=== PATIENT | male | born 1960 | race Caucasian/White ===

== ENCOUNTER 2016-04-20 19:54 | Inpatient (IN) | payer BC, OTHER ==
[2016-04-20] MEDS ORDERED: SODIUM CHLORIDE 0.9% 500 ML IV STA (20:28)
[2016-04-20] MEDS ORDERED: LEVOFLOXACIN 750MG-D5W PMX 750 MG in DEXTROSE/WATER 1 150ML.BAG IVPB STA (20:28)
[2016-04-20] MEDS ORDERED: methylPREDNISolone SOD SUCCI 125 MG/2 ML VIAL IV STA (20:28)
[2016-04-20] MEDS ORDERED: IPRATROPIUM-ALBUTEROL 3 ML NEB INHALATION STA (20:28)
[2016-04-20] MEDS ORDERED: SODIUM CHLORIDE 0.9% 1,000 ML IV STA (20:28)
[2016-04-20 20:53] LABS: Basophils % (A) 0 %; CH 30.1; CHCM 34.3; Eosinophils % (A) 0 %; HCT 39.4 % (39.0-53.0); HDW 2.47; HGB 13.5 gm/dL (13.0-17.5); Luc # (Auto) 0.24; Luc % (Auto) 3; Lymphocytes # (A) 0.4 k/uL (1.0-4.8); Lymphocytes % (A) 6 %; MCH 30.2 pg (25.0-35.0); MCHC 34.2 g/dL (31.0-37.0); MCV 88.1 fL (80.0-100.0); Mean Platelet Volume 8.1; Monocytes # (A) 0.6 k/uL (0-1.0); Monocytes % (A) 8 %; Neutrophils % (A) 82 %; RBC 4.47 m/uL (4.30-5.90); RDW 14.5 % (11.5-15.5); WBC 7.3 k/uL (3.8-10.6); WBC (Perox) 7.28
[2016-04-20 21:01] LABS: ALT 34 U/L (21-72); AST 61 U/L (17-59); Alkaline Phosphatase 54 U/L (38-126); Anion Gap 12 mmol/L; Blood Urea Nitrogen 17 mg/dL (9-20); Calcium 8.7 mg/dL (8.4-10.2); Carbon Dioxide 23 mmol/L (22-30); Chloride 97 mmol/L (98-107); Glucose 98 mg/dL (74-99); INR 1.5 (<1.1); Non-African American GFR(MDRD) >60 (>60 ml/min/1.73 sqM); Partial Thromboplastin Time 35.8 sec (22.0-30.0); Potassium 3.9 mmol/L (3.5-5.1); Prothrombin Time 14.9 sec (9.0-12.0); Sodium 132 mmol/L (137-145); Total Bilirubin 2.1 mg/dL (0.2-1.3); Total Protein 7.5 g/dL (6.3-8.2)
[2016-04-20] MEDS ORDERED: ACETAMINOPHEN TAB 500 MG TAB PO STA (21:05)
[2016-04-20] MEDS ORDERED: IBUPROFEN 600 MG TAB PO STA ×2 (21:10→21:11)
--- NOTE | 2016-04-20 21:13 | ED ---
SOB HPI - General Source: patient Mode of arrival: ambulatory Limitations: no limitations <Reece Coates - Last Filed: 04/20/16 21:11> <Ed Prasad - Last Filed: 04/20/16 22:47> - General Chief Complaint: Shortness of Breath Stated Complaint: SOB Time Seen by Provider: 04/20/16 19:59 - History of Present Illness Initial Comments: This 55-year-old white male presents with some shortness of breath as well as fever. He apparently was at urgent care prior to arrival and had an 83% pulse ox upon arrival. He's had a cough without production. He's also had wheezing. His symptoms came on approximately 2 days ago. He does note some sinus congestion and drainage for the last 2 weeks. He denies any history of DVT or PE. He denies any leg pain or swelling. He has had some diarrhea as well as a sore throat. The urgent care given a breathing treatment and also some Tylenol prior to arrival. He does present hypoxic and feverish. No other complaints or modifying factors. He denies any history of COPD asthma or emphysema. He does have a cardiac history. (Reece Coates) - Related Data Home Medications Medication Instructions Recorded Confirmed Aspirin EC [Ecotrin Low Dose] 81 mg PO QAM 06/15/15 04/20/16 Clopidogrel [Plavix] 75 mg PO QAM 06/15/15 04/20/16 Diltiazem HCl [Diltiazem 24Hr ER] 300 mg PO QAM 06/15/15 04/20/16 Famotidine 20 mg PO HS 06/15/15 04/20/16 Furosemide [Lasix] 20 mg PO DAILY 06/15/15 04/20/16 Levothyroxine Sodium [Synthroid] 25 mcg PO QAM 06/15/15 04/20/16 Losartan Potassium 100 mg PO HS 06/15/15 04/20/16 Nitroglycerin Sl Tabs [Nitrostat] 0.4 mg SUBLINGUAL Q5M PRN 06/15/15 04/20/16 Rivaroxaban [Xarelto] 20 mg PO DAILY@1200 06/15/15 04/20/16 Rosuvastatin [Crestor] 15 mg PO HS 06/15/15 04/20/16 Isosorbide Mononitrate ER [Imdur] 30 mg PO DAILY 04/20/16 04/20/16 Metoprolol Tartrate [Lopressor] 100 mg PO TID 04/20/16 04/20/16 Allergies Allergy/AdvReac Type Severity Reaction Status Date / Time No Known Allergies Allergy Verified 04/20/16 20:11 Review of Systems ROS Other: All systems not noted in ROS Statement are negative. <Reece Coates - Last Filed: 04/20/16 21:11> ROS Other: All systems not noted in ROS Statement are negative. <Ed Prasad - Last Filed: 04/20/16 22:47> ROS Statement: Those systems with pertinent positive or pertinent negative responses have been documented in the HPI. Past Medical History Past Medical History: Atrial Fibrillation, Coronary Artery Disease (CAD), COPD, Hyperlipidemia, Hypertension, Thyroid Disorder History of Any Multi-Drug Resistant Organisms: None Reported Past Surgical History: Coronary Bypass/CABG, Orthopedic Surgery Additional Past Surgical History / Comment(s): Right knee; CABG 2013; pyl[facility]al [facility] the Past Anesthesia/Blood Transfusion Reactions: No Reported Reaction Past Psychological History: No Psychological Hx Reported, Anxiety Additional Psychological History / Comment(s): anxious sometimes Smoking Status: Former smoker Past Alcohol Use History: Occasional Past Drug Use History: None Reported - Past Family History Father Family Medical History: Congestive Heart Failure (CHF), Diabetes Mellitus, Hypertension Mother Family Medical History: AFIB, Diabetes Mellitus <Reece Coates - Last Filed: 04/20/16 21:11> General Exam Limitations: no limitations <Reece Coates - Last Filed: 04/20/16 21:11> <Ed Prasad - Last Filed: 04/20/16 22:47> - General Exam Comments Initial Comments: GENERAL: The patient is well nourished and well hydrated. VITAL SIGNS: Heart rate, blood pressure, respiratory rate reviewed as recorded in nurse's notes. EYES: Pupils are round and reactive. Extraocular movements are intact. No conjunctival / lid redness or swelling. ENT: There is minimal posterior oropharyngeal erythema. Airway is patent. NECK: Nontender. No swelling or evidence of injury. No subcutaneous emphysema. Trachea is midline. No thyroid mass. HEART: Regular rate and rhythm. Good peripheral pulses. LUNGS/CHEST: There is wheezing noted bilaterally. No ecchymosis, subcutaneous emphysema, or tenderness. ABDOMEN: Abdomen soft without tenderness. No palpable masses or organomegaly. No peritoneal signs. No abdominal wall swelling or ecchymosis. EXTREMITIES: No extremity tenderness. Normal muscle tone and function. No thoracolumbar tenderness. NEUROLOGIC: Sensation is grossly intact. Cranial nerve exam reveals face is symmetrical, tongue is midline, speech is clear. SKIN: No abrasions or ecchymosis is noted. No induration or masses noted. PSYCHIATRIC: Alert and oriented. Appropriate behavior and judgment. (Reece Coates) Medical Decision Making - Lab Data Result diagrams: 04/20/16 20:35 04/20/16 20:35 <Reece Caotes - Last Filed: 04/20/16 21:11> - Lab Data Result diagrams: 04/20/16 20:35 04/20/16 20:35 <Ed Prasad - Last Filed: 04/20/16 22:47> - Medical Decision Making The patient was seen and examined. An IV is started and he receives some intravenous fluids as well as Levaquin. He also received some Motrin for his fever. A DuoNeb breathing treatment is ordered. Further care will be passed off to Dr. Prasad at approximately 9:15 PM. (Reece Coates) EKG shows atrial fibrillation with a rapid ventricular response at 122 bpm QRS 104 Q-T is 366 QTC is 521. Patient's EKG shows no ST segment elevation or depression even though it is a poor quality I see nothing suspicious. (Ed Prasad) - Lab Data Lab Results 04/20/16 04/20/16 04/20/16 Range/Units 20:35 20:35 20:35 WBC 7.3 (3.8-10.6) k/uL RBC 4.47 (4.30-5.90) m/uL Hgb 13.5 (13.0-17.5) gm/dL Hct 39.4 (39.0-53.0) % MCV 88.1 (80.0-100.0) fL MCH 30.2 (25.0-35.0) pg MCHC 34.2 (31.0-37.0) g/dL RDW 14.5 (11.5-15.5) % Plt Count 115 L (150-450) k/uL Neutrophils % 82 % Lymphocytes % 6 % Monocytes % 8 % Eosinophils % 0 % Basophils % 0 % Neutrophils # 6.0 (1.3-7.7) k/uL Lymphocytes # 0.4 L (1.0-4.8) k/uL Monocytes # 0.6 (0-1.0) k/uL Eosinophils # 0.0 (0-0.7) k/uL Basophils # 0.0 (0-0.2) k/uL PT (9.0-12.0) sec INR (<1.1) APTT (22.0-30.0) sec Sodium 132 L (137-145) mmol/L Potassium 3.9 (3.5-5.1) mmol/L Chloride 97 L (98-107) mmol/L Carbon Dioxide 23 (22-30) mmol/L Anion Gap 12 mmol/L BUN 17 (9-20) mg/dL Creatinine 1.05 (0.66-1.25) mg/dL Est GFR (MDRD) Af Amer >60 (>60 ml/min/1.73 sqM) Est GFR (MDRD) Non-Af >60 (>60 ml/min/1.73 sqM) Glucose 98 (74-99) mg/dL Plasma Lactic Acid Seven (0.7-2.0) mmol/L Calcium 8.7 (8.4-10.2) mg/dL Total Bilirubin 2.1 H (0.2-1.3) mg/dL AST 61 H (17-59) U/L ALT 34 (21-72) U/L Alkaline Phosphatase 54 (38-126) U/L Total Creatine Kinase 1363 H (55-170) U/L CK-MB (CK-2) 3.1 H* (0.0-2.4) ng/mL CK-MB (CK-2) Rel Index 0.2 Troponin I 0.018 (0.000-0.034) ng/mL NT-Pro-B Natriuret Pep pg/mL Total Protein 7.5 (6.3-8.2) g/dL Albumin 4.0 (3.5-5.0) g/dL Influenza Type A RNA (Not Detectd) Influenza Type B (PCR) (Not Detectd) 04/20/16 04/20/1617 Range/Units 20:35 20:35 20:35 WBC (3.8-10.6) k/uL RBC (4.30-5.90) m/uL Hgb (13.0-17.5) gm/dL Hct (39.0-53.0) % MCV (80.0-100.0) fL MCH (25.0-35.0) pg MCHC (31.0-37.0) g/dL RDW (11.5-15.5) % Plt Count (150-450) k/uL Neutrophils % % Lymphocytes % % Monocytes % % Eosinophils % % Basophils % % Neutrophils # (1.3-7.7) k/uL Lymphocytes # (1.0-4.8) k/uL Monocytes # (0-1.0) k/uL Eosinophils # (0-0.7) k/uL Basophils # (0-0.2) k/uL PT 14.9 H (9.0-12.0) sec INR 1.5 (<1.1) APTT 35.8 H (22.0-30.0) sec Sodium (137-145) mmol/L Potassium (3.5-5.1) mmol/L Chloride (98-107) mmol/L Carbon Dioxide (22-30) mmol/L Anion Gap mmol/L BUN (9-20) mg/dL Creatinine (0.66-1.25) mg/dL Est GFR (MDRD) Af Amer (>60 ml/min/1.73 sqM) Est GFR (MDRD) Non-Af (>60 ml/min/1.73 sqM) Glucose (74-99) mg/dL Plasma Lactic Acid Seven 1.0 (0.7-2.0) mmol/L Calcium (8.4-10.2) mg/dL Total Bilirubin (0.2-1.3) mg/dL AST (17-59) U/L ALT (21-72) U/L Alkaline Phosphatase (38-126) U/L Total Creatine Kinase (55-170) U/L CK-MB (CK-2) (0.0-2.4) ng/mL CK-MB (CK-2) Rel Index Troponin I (0.000-0.034) ng/mL NT-Pro-B Natriuret Pep 1580 pg/mL Total Protein (6.3-8.2) g/dL Albumin (3.5-5.0) g/dL Influenza Type A RNA (Not Detectd) Influenza Type B (PCR) (Not Detectd) 04/20/16 Range/Units 21:25 WBC (3.8-10.6) k/uL RBC (4.30-5.90) m/uL Hgb (13.0-17.5) gm/dL Hct (39.0-53.0) % MCV (80.0-100.0) fL MCH (25.0-35.0) pg MCHC (31.0-37.0) g/dL RDW (11.5-15.5) % Plt Count (150-450) k/uL Neutrophils % % Lymphocytes % % Monocytes % % Eosinophils % % Basophils % % Neutrophils # (1.3-7.7) k/uL Lymphocytes # (1.0-4.8) k/uL Monocytes # (0-1.0) k/uL Eosinophils # (0-0.7) k/uL Basophils # (0-0.2) k/uL PT (9.0-12.0) sec INR (<1.1) APTT (22.0-30.0) sec Sodium (137-145) mmol/L Potassium (3.5-5.1) mmol/L Chloride (98-107) mmol/L Carbon Dioxide (22-30) mmol/L Anion Gap mmol/L BUN (9-20) mg/dL Creatinine (0.66-1.25) mg/dL Est GFR (MDRD) Af Amer (>60 ml/min/1.73 sqM) Est GFR (MDRD) Non-Af (>60 ml/min/1.73 sqM) Glucose (74-99) mg/dL Plasma Lactic Acid Seven (0.7-2.0) mmol/L Calcium (8.4-10.2) mg/dL Total Bilirubin (0.2-1.3) mg/dL AST (17-59) U/L ALT (21-72) U/L Alkaline Phosphatase (38-126) U/L Total Creatine Kinase (55-170) U/L CK-MB (CK-2) (0.0-2.4) ng/mL CK-MB (CK-2) Rel Index Troponin I (0.000-0.034) ng/mL NT-Pro-B Natriuret Pep pg/mL Total Protein (6.3-8.2) g/dL Albumin (3.5-5.0) g/dL Influenza Type A RNA Detected A (Not Detectd) Influenza Type B (PCR) Not Detected (Not Detectd) Disposition <Reece Coates - Last Filed: 04/20/16 21:11> Time of Disposition: 22:24 <Ed Prasad - Last Filed: 04/20/16 22:47> Clinical Impression: Acute pulmonary edema, Influenza A Disposition: ADMITTED IP TO THIS HOSP
[2016-04-20 21:24] LABS: Troponin I 0.018 ng/mL (0.000-0.034)
--- NOTE | 2016-04-20 21:24 | XR ---
EXAMINATION TYPE: XR chest 2V DATE OF EXAM: 04/20/2016 9:08 PM COMPARISON: 06/16/2015 HISTORY: Short of breath TECHNIQUE: Frontal and lateral views of the chest are obtained. FINDINGS: Heart is enlarged. There is prominent vascular congestion. There are sternal wires. There are chest leads. There is slight blunting of costophrenic angles. IMPRESSION: There is evidence of congestive heart failure that is worse than last exam. Cardiomegaly .
[2016-04-20 21:28] LABS: Creatine Kinase MB 3.1 ng/mL (0.0-2.4)
[2016-04-20] MEDS ORDERED: OSELTAMIVIR 75 MG CAP PO STA (22:21)
[2016-04-20] MEDS ORDERED: FUROSEMIDE 10 MG/ML 2 ML VIAL IV ONE (22:25)
[2016-04-20] MEDS ORDERED: ACETAMINOPHEN TAB 325 MG TAB PO PRN (22:28)
[2016-04-20 23:35] VITALS: BMI 43.0
[2016-04-21] MEDS: METOPROLOL TARTRATE 50 MG TAB PO SCH ×3 (00:01→20:19)
[2016-04-21 00:17] LABS: Appearance,Urine Clear (Clear); Bilirubin,Urine Negative (Negative); Glucose,Urine (UA) Negative (Negative); Ketones,Urine Negative (Negative); Leukocyte Esterase,Urine Negative (Negative); Mucus,Urine Rare /hpf; Nitrite,Urine Negative (Negative); PH, Urine 5.5 (5.0-8.0); Particle Count 670; Protein,Urine Trace (Negative); RBC,Urine 2 /hpf (0-5); Specific Gravity,Urine 1.008 (1.001-1.035); Squamous Epithelial Cell,Urine <1 /hpf (0-4); UA Billing (MACRO vs. MICRO) MICRO; Urobilinogen,Urine <2.0 mg/dL (<2.0); WBC,Urine <1 /hpf (0-5)
[2016-04-21] MEDS ORDERED: METOPROLOL TARTRATE 50 MG TAB PO SCH (09:00)
[2016-04-21] MEDS ORDERED: NITROGLYCERIN OINT 1 INCH/GM PACKET TOPICAL SCH (09:00)
[2016-04-21] MEDS: FUROSEMIDE 10 MG/ML 4 ML VIAL IV SCH ×2 (09:31→20:17)
[2016-04-21] MEDS: OSELTAMIVIR 75 MG CAP PO SCH ×2 (09:31→20:19)
[2016-04-21] MEDS ORDERED: ASPIRIN 81 MG CHEW PO ONE (09:45)
[2016-04-21] MEDS ORDERED: LEVOTHYROXINE 25 MCG TAB PO ONE (09:45)
[2016-04-21] MEDS ORDERED: DILTIAZEM CD 300 MG CAP.ER.24H PO ONE (09:45)
[2016-04-21] MEDS ORDERED: ISOSORBIDE MONONITRATE ER 30 MG TAB.ER.24H PO ONE (09:45)
--- NOTE | 2016-04-21 10:30 | CONS ---
DATE OF CONSULTATION: Attending Dr. Becker. Mr. Healy is a 55-year-old male with known history of coronary artery disease, status post coronary artery bypass grafting followed at [facility] on a regular basis. Underwent coronary artery bypass grafting 2 years ago, history of chronic atrial fibrillation who presented with progressive dyspnea going on for the last 3 days with cough and weight gain with some edema. He was seen in the walk-in clinic and subsequently referred to the emergency room. He was diagnosed with influenza A. He denies any symptoms of chest discomfort. He has the dyspnea on exertion. He feels better this morning. He has some peripheral edema, chronic, more on the left side. He has no dizziness or palpitation. No syncope. He is unaware of the atrial fibrillation. 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 His coronary risk factors are remarkable for hypertension, hyperlipidemia. He is nonsmoker, nondiabetic. He continues to be on metoprolol tartrate 100 mg twice a day, Crestor ( ) mg daily, Xarelto 20 mg daily, losartan 100 mg daily, levothyroxine 0.025 mg daily, isosorbide mononitrate 30 mg daily, furosemide 20 mg daily, diltiazem CD 300 mg daily, Plavix 75 mg daily and aspirin 81 mg daily. On asking him, he is not sure why he is on Plavix. He has not had any stent since his surgery. REVIEW OF SYSTEMS: RESPIRATORY SYSTEM: He had dyspnea on exertion and cough. GI SYSTEM: No recent GI bleeding. No peptic ulcer disease. SYSTEM: No dysuria or hematuria. NERVOUS SYSTEM: No stroke or seizure. Past surgeries remarkable for the coronary artery bypass grafting. PHYSICAL EXAMINATION: A 55-year-old male, alert, oriented, in no apparent distress, obese. Blood pressure ( ) with the heart rate between 90s and low 100s. He was febrile on presentation. HEAD: Normocephalic. EYES: Sclerae anicteric. NECK: No bruit. LUNGS: With a few rhonchi bilaterally with good air exchange. HEART: Irregular, irregular. S1, S2, no S3, no rub with soft systolic murmur. ABDOMEN: Soft, obese, nontender. EXTREMITIES: +1 edema, more noted on the left side. Lab data revealed BUN and creatinine of 17 and 1.05. Troponin 0.018. NT-proBNP of 1580. Hemoglobin is 13.5, white blood cell 7.3. He is positive influenza type A. His EKG reveals atrial fibrillation with rapid ventricular response and nonspecific ST-T wave changes. His chest x-ray shows mild congestion. IMPRESSION: 1. Progressive dyspnea with cough, appears to be a combination of influenza with possible fluid overload and congestive heart failure. His systolic function is not available to me. 2. Chronic atrial fibrillation, anticoagulated. 3. History of coronary artery disease, status post coronary artery bypass grafting with no evidence of acute coronary syndrome. 4. History of hypertension. 5. Hyperlipidemia. 6. History of obstructive sleep apnea. 7. Obesity. RECOMMENDATION: I will reinitiate his home medications. He will be on IV Lasix. I will hold his Plavix, since he has not had a stent at this time. Otherwise, he will be on a triple anticoagulation. An echocardiogram with Doppler will be obtained and depending on his progress, further recommendation will be made. Thank you for this consult. We will follow with you.
[2016-04-21] MEDS: RIVAROXABAN 10 MG TAB PO SCH (10:59)
--- NOTE | 2016-04-21 15:00 | ECHOF ---
Referral Reason:chf MEASUREMENTS -------- HEIGHT: 180.3 cm WEIGHT: 139.7 kg BP: 171/76 RVIDd: 3.5 cm (< 3.3) IVSd: 1.6 cm (0.6 - 1.1) LVIDd: 4.0 cm (3.9 - 5.3) LVPWd: 1.5 cm (0.6 - 1.1) IVSs: 2.0 cm LVIDs: 3.3 cm LVPWs: 1.8 cm LA Diam: 4.1 cm (2.7 - 3.8) LAESV Index (A-L): 23.14 ml/m Ao Diam: 3.6 cm (2.0 - 3.7) AV Cusp: 2.7 cm (1.5 - 2.6) MV EXCURSION: 16.009 mm (> 18.000) MV EF SLOPE: 140 mm/s (70 - 150) EPSS: 0.4 cm RAP: 15.00 mmHg RVSP: 37.96 mmHg FINDINGS -------- Atrial fibrillation. This was a technically difficult study with suboptimal views. The left ventricular size is normal. There is moderate concentric left ventricular hypertrophy. Overall left ventricular systolic function is mildly impaired with, an EF between 45 - 50 %. Basal inferior LV wall motion is hypokinetic. Mid inferior LV wall motion is hypokinetic. The right ventricle is mildly enlarged. Normal LA size by volume 22+/-6 ml/m2. The right atrium was not well visualized. 1.5mg of Definity was utilized for enhancement of images The aortic valve was not well visualized. Mild mitral annular calcification present. There is trace to mild mitral regurgitation. Mild tricuspid regurgitation present. There is mild pulmonary hypertension. The right ventricular systolic pressure, as measured by Doppler, is 37.96mmHg. The pulmonic valve was not well visualized. Trace/mild (physiologic) pulmonic regurgitation. The aortic root size is normal. The inferior vena cava is dilated with poor inspiratory collapse which is consistent with estimated right atrial pressure of 15 mmHg. There is no pericardial effusion. CONCLUSIONS -------- 1. Atrial fibrillation. 2. 1.5mg of Definity was utilized for enhancement of images 3. The aortic valve was not well visualized. 4. Mild mitral annular calcification present. 5. There is trace to mild mitral regurgitation. 6. Mild tricuspid regurgitation present. 7. There is mild pulmonary hypertension. 8. Trace/mild (physiologic) pulmonic regurgitation. 9. The aortic root size is normal. 10. The inferior vena cava is dilated with poor inspiratory collapse which is consistent with estimated right atrial pressure of 15 mmHg. 11. There is no pericardial effusion. 12. This was a technically difficult study with suboptimal views. 13. There is moderate concentric left ventricular hypertrophy. 14. Overall left ventricular systolic function is mildly impaired with, an EF between 45 - 50 %. 15. Basal inferior LV wall motion is hypokinetic. 16. Mid inferior LV wall motion is hypokinetic. 17. The right ventricle is mildly enlarged. 18. Normal LA size by volume 22+/-6 ml/m2. 19. The right atrium was not well visualized. HERD TESTER: Bessy Mcdonough RDCS
--- NOTE | 2016-04-21 16:58 | HP ---
DATE OF ADMISSION: Patient is a 55-year-old male with known history of coronary artery disease and atrial fibrillation, came in with complaints of not feeling well and diarrhea has been going on for 2 days. Patient is found to have influenza A. Patient denied any cough, runny nose. Patient was also complaining of shortness of breath that has been going on since Saturday. Patient does have pedal edema, which appears to be chronic. Patient's previous ejection fraction was normal, although patient on this admission is found to have some pulmonary edema on chest x-ray. I did not appreciate any clearcut JVD when I evaluated the patient as patient already received IV Lasix with improvement in symptoms. Patient denied any clear-cut orthopnea or PND. Patient did have elevated BNP of around 1580. Does have pedal edema, which appears to be mostly chronic. Patient was in atrial fibrillation when he came in as well, atrial fibrillation with rapid ventricular rate. Patient is on anticoagulation with Eliquis. Patient is morbidly obese and does use CPAP machine and patient was complaining of cough with whitish sputum production. As mentioned above, patient is found to have positive influenza and patient was started on Tamiflu. REVIEW OF SYSTEMS: CONSTITUTIONAL: No fever, no malaise, no fatigue. HEENT: No recent visual problems or hearing problems. Denied any sore throat. CARDIOVASCULAR: As described in HPI. PULMONARY: As described in HPI. Patient denied any chest pain. GASTROINTESTINAL: As described nature. Patient denied any abdominal pain or blood in the stools, hematemesis or hematochezia. NEUROLOGICAL: No headaches, no weakness, no numbness. HEMATOLOGICAL: Denies any bleeding or petechiae. GENITOURINARY: Denies any burning micturition, frequency, or urgency. MUSCULOSKELETAL/RHEUMATOLOGICAL: Denies any joint pain, swelling, or any muscle pain. ENDOCRINE: Denies any polyuria or polydipsia. The rest of the 14 point review of systems is negative. Home medications include: Metoprolol, ( ), nitroglycerin, losartan, levothyroxine, Imdur, Lasix 20 mg oral daily, famotidine, diltiazem, Plavix and aspirin. PAST MEDICAL HISTORY: Significant for atrial fibrillation, coronary artery disease, COPD, hyperlipidemia, hypertension, hypothyroidism, sleep apnea, uses CPAP machine at home, coronary artery bypass grafting in the past, orthopedic surgery. Former smoker. Quit smoking years ago. Denied any alcohol abuse or drug abuse. FAMILY HISTORY: Significant for diabetes mellitus, hypertension, and congestive heart failure in the family. PHYSICAL EXAMINATION: VITAL SIGNS: Temperature 98.0, pulse of 112, respiratory rate 19, blood pressure is 171/76, saturating at 94% on room air. GENERAL: The patient is alert and oriented x3, not in any acute distress. Well developed, well nourished. HEENT: Pupils are round and equally reacting to light. EOMI. No scleral icterus. No conjunctival pallor. Normocephalic, atraumatic. No pharyngeal erythema. No thyromegaly. CARDIOVASCULAR: There is no JVD. Patient does have pedal edema which appears to be chronic venostasis with some dermatosis in bilateral lower limbs. Patient's edema is mostly nonpitting with areas of pitting edema. I did not appreciate any clearcut S3. Patient is tachycardic, irregular, irregular rhythm. PULMONARY: Chest is clear to auscultation, no wheezing or crackles. ABDOMEN: Soft, nontender, nondistended, normoactive bowel sounds. No palpable organomegaly. MUSCULOSKELETAL: No joint swelling or deformity. EXTREMITIES: No cyanosis, clubbing, or pedal edema. NEUROLOGICAL: Gross neurological examination did not reveal any focal deficits. SKIN: No rashes. LABORATORY DATA: CBC, CMP are abnormal for low sodium of 132, INR of 1.5 secondary to Eliquis and total bilirubin is 2.1, AST 61. Trace protein in the urine, small blood in the urine. Influenza A on PCR is positive. Chest x-ray as mentioned above. ASSESSMENT AND PLAN: 1. Acute influenza, upper respiratory as well as gastrointestinal infections. Supportive care and Tamiflu. Patient unfortunately cannot receive any IV fluids at this point of time because of his heart failure exacerbation. 2. Congestive heart failure, chronic. Patient's previous ejection fraction was within normal limits. Patient is in heart failure exacerbation and echocardiogram is being obtained to assess for systolic function. Patient may have some pulmonary hypertension as well. Patient is fairly close to euvolemia and continue with the Lasix at this point of time. His atrial fibrillation or viral infection may have precipitated his congestive heart failure and atrial fibrillation was probably precipitated by infection as well. 3. Atrial fibrillation, not rate controlled. Continue with present medications that is Cardizem and metoprolol. 4. Diarrhea, which is viral and secondary to influenza, with improved symptoms now. Clostridium difficile was ordered. 5. Sleep apnea, morbid obesity. Patient will continue to use his CPAP machine. 6. Hypothyroidism. 7. Hypertension. 8. Hyperlipidemia for which I will continue with home medications. 9. Patient may have bronchitis secondary to viral infection, which is viral etiology. 10. Patient's primary care physician is Dr. Jarrod Becker.
[2016-04-21] MEDS ORDERED: ATORVASTATIN 10 MG TAB PO SCH (21:00)
[2016-04-21] MEDS ORDERED: LOSARTAN 50 MG TAB PO SCH (21:00)
[2016-04-22 06:16] LABS: Anion Gap 13 mmol/L; Blood Urea Nitrogen 25 mg/dL (9-20); Carbon Dioxide 25 mmol/L (22-30); Chloride 104 mmol/L (98-107); Glucose 132 mg/dL (74-99); Non-African American GFR(MDRD) >60 (>60 ml/min/1.73 sqM); Potassium 4.3 mmol/L (3.5-5.1); Sodium 142 mmol/L (137-145)
[2016-04-22] MEDS ORDERED: LEVOTHYROXINE 25 MCG TAB PO SCH (06:30)
[2016-04-22] MEDS: OSELTAMIVIR 75 MG CAP PO SCH (08:11)
[2016-04-22] MEDS: METOPROLOL TARTRATE 50 MG TAB PO SCH (08:12)
[2016-04-22] MEDS: FUROSEMIDE 10 MG/ML 4 ML VIAL IV SCH (08:12)
[2016-04-22] MEDS ORDERED: ISOSORBIDE MONONITRATE ER 30 MG TAB.ER.24H PO SCH (09:00)
[2016-04-22] MEDS ORDERED: ASPIRIN 81 MG CHEW PO SCH (09:00)
[2016-04-22] MEDS ORDERED: FUROSEMIDE 20 MG TAB PO SCH ×2 (09:00→21:00)
[2016-04-22] MEDS ORDERED: DILTIAZEM CD 300 MG CAP.ER.24H PO SCH (09:00)
--- NOTE | 2016-04-22 09:02 | PN ---
Gabe Healy is a 55-year-old male with a history of chronic fibrillation, history of coronary artery disease, status post coronary artery bypass grafting, who presented with symptoms of progressive dyspnea and cough, diagnosed with H. flu infection. He is feeling much better today. His breathing is better. He still has some dyspnea and cough, although much improved. He is denying chest pain. No dizziness. No palpitation. His peripheral edema has improved. He denies any nausea. He continues to be on aspirin once a day, Lipitor 30 mg daily, Cardizem CD 300 mg daily, Lasix 20 mg IV q.12 hours, Imdur 30 mg daily, levothyroxine 0.025 mg daily, losartan 100 mg daily, metoprolol tartrate 100 mg twice a day and Xarelto 20 mg daily. PHYSICAL EXAMINATION: Blood pressure 144/70 with a heart in the 90s. LUNGS: Clear. HEART: Irregularly irregular. S1, S2, no S3, no rub. ABDOMEN: Soft, obese, nontender. EXTREMITIES: No edema. Lab data revealed BUN and creatinine 25 and 0.88, potassium 4.3. His echocardiogram revealed mildly impaired left ventricular systolic function. IMPRESSION: 1. Influenza A infection. 2. Atrial fibrillation chronic anticoagulation. 3. Status post coronary artery bypass grafting. 4. Hypertension. 5. Hyperlipidemia. 6. Obesity. 7. Obstructive sleep apnea. RECOMMENDATION: I will switch him to oral diuretics. Continue the rest of his medical regimen. Follow his renal function and depending on his progress, further recommendation will be made.
[2016-04-22] MEDS: RIVAROXABAN 10 MG TAB PO SCH (11:18)
[2016-04-22 12:12] VITALS: BP 126/83; PULSE 88; RESP 18; TEMP 97.6
--- NOTE | 2016-04-22 14:43 | DS ---
DATE OF ADMISSION: 04/20/2016 DATE OF DISCHARGE: 04/22/2016 A 55-year-old with history of coronary artery disease and atrial fibrillation came in with mild congestive heart failure. Patient's ejection fraction is 50%. Patient may have diastolic dysfunction with acute exacerbation. Patient is euvolemic at this point of time, although he does have pedal edema, probably peripheral venous insufficiency and patient was also had flu which precipitated his atrial fibrillation with rapid ventricular rate that may have led him to have pulmonary edema. Patient is alert and clinically doing well. He will be discharged today on Tamiflu. Patient was seen and examined on the day of discharge. Vitals are stable. PHYSICAL EXAMINATION: GENERAL: The patient is alert and oriented x3, not in any acute distress. Well developed, well nourished. HEENT: Pupils are round and equally reacting to light. EOMI. No scleral icterus. No conjunctival pallor. Normocephalic, atraumatic. No pharyngeal erythema. No thyromegaly. CARDIOVASCULAR: S1 and S2 present. No murmurs, rubs, or gallops. PULMONARY: Chest is clear to auscultation, no wheezing or crackles. ABDOMEN: Soft, nontender, nondistended, normoactive bowel sounds. No palpable organomegaly. MUSCULOSKELETAL: No joint swelling or deformity. EXTREMITIES: Patient has pedal edema. No cyanosis, clubbing. NEUROLOGICAL: Gross neurological examination did not reveal any focal deficits. SKIN: No rashes. ASSESSMENT AND PLAN: 1. Acute influenza and upper respiratory infection. 2. Congestive heart failure, chronic diastolic dysfunction with mild acute exacerbation. 3. Atrial fibrillation, rate controlled now. 4. Diarrhea which is viral in nature and resolved. 5. Sleep apnea. 6. Hypothyroidism. 7. Hypertension. 8. Hyperlipidemia. Patient will be discharged today. DISCHARGE DIET: Cardiac. Activity as tolerated. Follow with Dr. Becker as an outpatient in about 3 to 7 days. I spent greater than 35 minutes in total discharge process.
== END 2016-04-22 14:27 | disposition home or self-care (01) | DRG 193 ==
LOC: EC 19:54 → 6SEL 22:25
PROVIDERS: ADMIT Hospitalist; ATTEND Hospitalist
DX: J10.1 Influenza due to other identified influenza virus with other respiratory manifestations (principal); I50.33 Acute on chronic diastolic (congestive) heart failure; Z68.41 Body mass index [BMI] 40.0-44.9, adult; E66.01 Morbid (severe) obesity due to excess calories; I48.2 Chronic atrial fibrillation; J10.2 Influenza due to other identified influenza virus with gastrointestinal manifestations; E03.9 Hypothyroidism, unspecified; E78.5 Hyperlipidemia, unspecified; I25.10 Atherosclerotic heart disease of native coronary artery without angina pectoris; Z95.1 Presence of aortocoronary bypass graft; G47.33 Obstructive sleep apnea (adult) (pediatric); I11.0 Hypertensive heart disease with heart failure; Z79.01 Long term (current) use of anticoagulants; J44.9 Chronic obstructive pulmonary disease, unspecified; I87.2 Venous insufficiency (chronic) (peripheral); Z87.891 Personal history of nicotine dependence; Z79.02 Long term (current) use of antithrombotics/antiplatelets; Z79.82 Long term (current) use of aspirin; Z79.899 Other long term (current) drug therapy
CPT/HCPCS: 36415; 71020; 80048; 80053; 81001; 82550; 82553; 83605; 83880; 84484; 85025; 85610; 85730; 87040; 87502; 93005; 93306; 94640; 96365; 96366; 96375; 99285

== ENCOUNTER → 2018-12-15 | Outpatient (CLI) | payer OTHER ==
--- NOTE | 2018-12-15 19:00 | ECHOF ---
Referral Reason:I48.91 AFIB MEASUREMENTS -------- HEIGHT: 162.6 cm WEIGHT: 140.6 kg BP: RVIDd: 3.3 cm (< 3.3) IVSd: 1.5 cm (0.6 - 1.1) LVIDd: 4.7 cm (3.9 - 5.3) LVPWd: 1.5 cm (0.6 - 1.1) IVSs: 1.8 cm LVIDs: 3.1 cm LVPWs: 1.8 cm LA Diam: 5.0 cm (2.7 - 3.8) Ao Diam: 3.3 cm (2.0 - 3.7) AV Cusp: 1.6 cm (1.5 - 2.6) LA Diam: 5.5 cm (2.7 - 3.8) MV EXCURSION: 16.486 mm (> 18.000) MV EF SLOPE: 102 mm/s (70 - 150) EPSS: 0.3 cm FINDINGS -------- Atrial fibrillation. Morbid Obesity This was a techncally difficult study with suboptimal views, , Lumason utilized for enhancement of im ages. The left ventricular size is normal. There is mild concentric left ventricular hypertrophy. Overa ll left ventricular systolic function is normal with, an EF between 55 - 60 %. The right ventricle is normal in size. The left atrium is moderately dilated. The right atrial size is normal. 5.0mg OF Lumason UTLIZED: 2 OR MORE WALL SEGMENTS NOT VISUALIZED. The aortic valve was not well visualized. Mild mitral regurgitation is present. The tricuspid valve was not well visualized. The pulmonic valve was not well visualized. The aortic root size is normal. There is no pericardial effusion. CONCLUSIONS -------- 1. Atrial fibrillation. 2. Morbid Obesity 3. This was a techncally difficult study with suboptimal views, , Lumason utilized for enhancement of images. 4. The left ventricular size is normal. 5. There is mild concentric left ventricular hypertrophy. 6. Overall left ventricular systolic function is normal with, an EF between 55 - 60 %. 7. The right ventricle is normal in size. 8. The left atrium is moderately dilated. 9. The right atrial size is normal. 10. 5.0mg OF Lumason UTLIZED: 2 OR MORE WALL SEGMENTS NOT VISUALIZED. 11. The aortic valve was not well visualized. 12. Mild mitral regurgitation is present. 13. The tricuspid valve was not well visualized. 14. The pulmonic valve was not well visualized. 15. The aortic root size is normal. 16. There is no pericardial effusion. PROFESSOR OF MEDICINE: Rosalinda Beach RDCS
== END | disposition home or self-care (01) ==
LOC: RADECHMAIN 15:47
PROVIDERS: ATTEND Family Medicine
DX: I48.91 Unspecified atrial fibrillation (principal); E66.01 Morbid (severe) obesity due to excess calories; I51.7 Cardiomegaly; I34.0 Nonrheumatic mitral (valve) insufficiency
CPT/HCPCS: 93306; Q9950

== ENCOUNTER → 2020-02-12 | Outpatient (CLI) | payer BC, OTHER | END | disposition home or self-care (01) | LOC: LABWHC1 09:29 | PROVIDERS: ATTEND Family Medicine | DX: R50.9 Fever, unspecified (principal) | CPT/HCPCS: U0003; C9803 ==